=== PATIENT | female | born 1935 | race Caucasian/White ===

== ENCOUNTER 2021-06-30 14:45 | Emergency (ER) | payer OTHER ==
[~2021-06-30] VITALS: Ht 167.6 cm; Wt 77.1 kg
[2021-06-30] MEDS ORDERED: TYLENOL325 MG PO (14:49)
[2021-06-30] MEDS ORDERED: ASA81BEC PO (14:49)
[2021-06-30] MEDS ORDERED: CELEXA 20 MG TA20 MG PO (14:50)
[2021-06-30] MEDS ORDERED: VITAMIN B-121000 MC2 SUBLING (14:50)
[2021-06-30] MEDS ORDERED: DONEPEZIL HCL 55 M1 PO (14:51)
[2021-06-30] MEDS ORDERED: MIRALAX119 GM PO (14:51)
[2021-06-30] MEDS ORDERED: NAMENDA XR28 MG PO (14:51)
[2021-06-30] MEDS ORDERED: LEVO-T100 MCG PO (14:51)
[2021-06-30] MEDS ORDERED: ZOCOR20 MG PO (14:52)
[2021-06-30] MEDS ORDERED: TRAZODONE HCL100 MG PO ×2 (14:53→14:54)
[2021-06-30 15:16] LABS: ABSOLUTE NEUTROPHILS 3.8 thou/uL (1.4-8.2); BASOPHILS 0.3 % (0.0-2.0); EOSINOPHILS 1.3 % (0.0-3.0); HEMATOCRIT 42.5 % (37.0-47.0); HEMOGLOBIN 13.7 gm/dL (12.0-15.0); LYMPHOCYTES 27.4 % (24.0-44.0); MCH 30.6 pg (26.0-34.0); MCHC 32.2 g/dL (28.0-37.0); MONOCYTES 9.7 % (1.0-8.0); PLATELET COUNT 177 thou/uL (150-400); POLYS 61.3 % (36.0-66.0); RBC 4.47 mil/uL (4.20-5.00); RDW 13.5 % (10.5-14.5); WBC 6.2 thou/uL (4.0-11.0)
[2021-06-30 15:25] LABS: ANION GAP 4 mmol/L (7-16); BUN 13 mg/dL (7-18); CALCIUM 9.1 mg/dL (8.5-10.1); CHLORIDE 107 mmol/L (98-107); CO2 29 mmol/L (21-32); CREATININE 1.2 mg/dL (0.6-1.0); GLUCOSE 128 mg/dL (74-106); POTASSIUM 3.9 mmol/L (3.5-5.1); SALICYLATE < 2.8 mg/dL (2.8-20.0); SODIUM 140 mmol/L (136-145)
[2021-06-30 16:23] LABS: AMP/METHAMP Negative (Negative); BARBITURATES Negative (Negative); BENZODIAZEPINES Negative (Negative); COCAINE Negative (Negative); METHADONE Negative (Negative); OPIATES Negative (Negative); PCP Negative (Negative)
[2021-06-30 16:30] LABS: URINE BILIRUBIN NEGATIVE (Negative); URINE BLOOD NEGATIVE (Negative); URINE CLARITY CLEAR; URINE COLOR YELLOW; URINE GLUCOSE-RANDOM* NEGATIVE (Negative); URINE KETONES NEGATIVE (Negative); URINE LEUKOCYTES-REFLEX NEGATIVE (Negative); URINE NITRITE-REFLEX NEGATIVE (Negative); URINE PROTEIN (DIPSTICK) NEGATIVE (Negative); URINE SPECIFIC GRAVITY <= 1.005 (1.005-1.035); URINE UROBILINOGEN 0.2 E.U./dl (0.2-1.0)
[2021-06-30 23:34] VITALS: BP 120/60
--- NOTE | 2021-07-02 08:01 | EKG ---
[address] [address] ELECTROCARDIOGRAM REPORT Name: DANETTE BOWLES Room #: [facility] Roney#: [id number] Admission: 06/30/21 Attend Phys: Discharge: 06/30/21 Date of : 39 Report #: [id number] [facility] ED Test Date: 2021-06-30 Test Time: 14:56:31 Pat Name: DANETTE BOWLES Department: Room: Gender: F Product Director: OTILIA : 1935 Requested By: Jared Tavarez Order Number: [id number] MD: Eusebio Kim Measurements Intervals [place] Rate: 78 P: -4 UT: 172 QRS: -23 QRSD: 83 T: 2 QT: 418 QTc: 477 Interpretive Statements Sinus rhythm No significant abnormality No previous ECG available for comparison Electronically Signed On 07-02-2021 8:01:44 CDT by Eusebio Kim [email or web address] <ELECTRONICALLY SIGNED> By: Eusebio Kim MD, [facility] 07/02/21 0801 1456 1456 Eusebio Kim MD, FAC /EPI
== END 2021-06-30 23:35 | disposition home or self-care (01) ==
LOC: ER 14:45
PROVIDERS: Nurse Practitioner
DX: R45.1 Restlessness and agitation (principal); Z20.822 Contact with and (suspected) exposure to COVID-19; F32.9 Major depressive disorder, single episode, unspecified; E03.9 Hypothyroidism, unspecified; N18.9 Chronic kidney disease, unspecified; Z79.891 Long term (current) use of opiate analgesic; Z79.82 Long term (current) use of aspirin; Z79.1 Long term (current) use of non-steroidal anti-inflammatories (NSAID); Z79.899 Other long term (current) drug therapy